=== PATIENT | male | born 1955 | race Caucasian/White ===

== ENCOUNTER 2021-07-28 00:57 | Outpatient (CLI) | payer OTHER, SELFPAY ==
--- NOTE | 2021-07-28 11:00 | DI.NM_ITS ---
APPROVED REPORT Exam: Exercise Treadmill Patient Location: Out-Patient Room/Bed: Stress Nurse: India Capone RN Ordering Provider:LAUREN HUGO MD Contact Number: [phone] BMI: 40.31 Baseline Rhythm: Sinus Rhythm Comment: multifocal PVCs Indications: SYNCOPE, AFIB Medical History Medical History: HTN, AFIB, Diabetic neuropathy, Obstructive sleep apnea, Severe obesity, DM, HLD Cardiac Medications: Eliquis, Furosemide, Glipizide, Metformin, Metoprolol succinate, Omeprazole, Sim vastatin, Victoza, Tresiba Allergies: No known drug allergies Cardiac Risk Factors: HTN, Hyperlipidemia, DM, FHX of CAD, Smoking (former) , Obesity Previous Cardiac Procedures: None Pretest Chest Pain Characteristics: No chest pain Exercise History: Sedentary Physical Disabilities: None Lung Sounds: Clear to auscultation Heart Sounds: Regular Stress Test Details Test: Exercise stress testing was performed using a Thanh protocol. Nuclear Acquisition: Rest Tc-99m/Stress Tc-99m 1 day Rest Isotope: Tc-99m Sestamibi. Dose: 14.0 Date: 07/28/2021 Injection Time: 1130 Stress Isotope: Tc-99m Sestamibi. Dose: 44.5 Date: 07/28/2021 Injection Time: 1325 HR Resting HR Supine: 87 bpm Max Heart Rate (APMHR): 153.434060 bpm Resting HR Standin bpm Target HR (85% APMHR): 130.970294 bpm Max HR Achieved: 152 bpm % of APMHR: 99.35 Recovery HR: 103 bpm HR response to stress: Normal HR response to stress Comment: Metoprolol succinate held for 24 hours. BP Resting BP Supine: 142/80 mmHg Resting BP Standin/78 mmHg Max BP: 186/82 mmHg Recovery BP: 152/84 mmHg BP response to stress: Normal blood pressure response to stress. Comment: Drop in BP immediately post exercise. ECG Resting ECG: Sinus Rhythm Ectopy: multifocal PVCs, couplet Comment: abnormal R wave progression Stress ECG: Sinus Tachycardia ST Change: No significant ST segment changes noted Arrhythmia: multifocal PVCs, couplet Recovery ECG: Sinus Tachycardia Recovery ST Change: No significant ST segment changes noted Recovery Arrhythmia: multifocal PVCs, quadreminy Clinical Reason for Termination: Fatigue, Dyspnea Stress Symptoms: Dyspnea, General Fatigue Exercise duration: 4 min52 sec Highest Stage Reached: Stage 2: 2.5 mph at 12% grade. Exercise capacity: 6.86 METs Henderson Treadmill Score: 4.7 Rate Pressure Product: [id number] Stress ECG Conclusion 1. Resting electrocardiogram showed early R wave transition 2. The patient exercised on the Thanh protocol and completed a workload of 6.86 METS, stopping due to fatigue 3. Normal heart rate and blood pressure response to exercise. The patient achieved 99% of predicted heart rate for age 4. No electrocardiographic evidence of myocardial ischemia with exercise 5. Ventricular ectopic beats and couplets were noted Henderson Treadmill Score is 4.7 which is Moderate risk. Stress Test Summary STAGE Time (mins) Speed (mph) Grade (%) HR BP SYMPTOMS METS Supine 87 142/80 Standing 98 148/78 1 3 1.7 10 129 160/84 4.6 1 min recovery 135 148/80 3 min recovery 107 186/82 6 min recovery 103 152/84 MPI Conclusion Normal myocardial perfusion without evidence of ischemia or prior infarction EF 52%, normal wall motion Radiologist Interpretation Radiologist Interpretation by: Bernardo Salgado MD Interpretation Date/Time: 07/28/2021 16:18:46
== END 2021-07-28 01:17 ==
LOC: DI 00:58
PROVIDERS: PCP Family Medicine; Visit Provider Internal Medicine Interventional Cardiology
DX: I48.91 Unspecified atrial fibrillation (principal); I10 Essential (primary) hypertension; E66.8 Other obesity; Z87.891 Personal history of nicotine dependence
CPT/HCPCS: 78452; 93016; 93018; 93017